=== PATIENT | male | born 1995 | race African-American/Black ===

== ENCOUNTER 2018-06-10 21:50 | Emergency (ER) | payer SELFPAY ==
[~2018-06-10] VITALS: Ht 182.9 cm; Wt 117.9 kg
[2018-06-10 21:55] VITALS: BP 134/61
[2018-06-10] MEDS ORDERED: SULF1TAB24 PO (22:24)
--- NOTE | 2018-06-10 22:26 | PHYS DOC ---
Past Medical History Past Medical History: No Pertinent History Past Surgical History: Other Additional Past Surgical Histo: BOTH FEET: CLUB FEET Alcohol Use: None Drug Use: None Adult General Chief Complaint Chief Complaint: ABSCESS HPI HPI Patient is a 23 year old male who presents with an abscess that is forming in his buttocks. The patient states that started approximately 3 days ago and is very painful. He denies fevers, nausea or vomiting. He has not taken any over- the-counter pain medication to help with this condition. Review of Systems Review of Systems Constitutional: Denies fever or chills [] Respiratory: Denies cough or shortness of breath [] Cardiovascular: No additional information not addressed in HPI [] GI: Denies abdominal pain, nausea, vomiting, bloody stools or diarrhea [] : Denies dysuria or hematuria [] Musculoskeletal: Denies back pain or joint pain [] Integument: See history of present illness Neurologic: Denies headache, focal weakness or sensory changes [] Endocrine: Denies polyuria or polydipsia [] All other systems were reviewed and found to be within normal limits, except as documented in this note. Physical Exam Physical Exam Constitutional: Well developed, well nourished, no acute distress, non-toxic appearance. [] Cardiovascular:Heart rate regular rhythm, no murmur [] Lungs & Thorax: Bilateral breath sounds clear to auscultation [] Abdomen: Bowel sounds normal, soft, no tenderness, no masses, no pulsatile masses. [] Skin: There is a 1.5 cm area of erythema with induration but no fluctuance to the upper gluteal fold Back: No tenderness, no CVA tenderness. [] Extremities: No tenderness, no cyanosis, no clubbing, ROM intact, no edema. [] Neurologic: Alert and oriented X 3, normal motor function, normal sensory function, no focal deficits noted. [] Psychologic: Affect normal, judgement normal, mood normal. [] Current Patient Data Vital Signs Vital Signs Date Time Temp Pulse Resp B/P (MAP) Pulse Ox O2 Delivery O2 Flow Rate FiO2 06/10/18 21:55 98.9 90 16 134/61 (85) 100 Room Air 98.9 EKG EKG [] Radiology/Procedures Radiology/Procedures [] Course & Med Decision Making Course & Med Decision Making Pertinent Labs and Imaging studies reviewed. (See chart for details) [] Dragon Disclaimer Dragon Disclaimer This electronic medical record was generated, in whole or in part, using a voice recognition dictation system. Departure Departure Impression: Primary Impression: Abscess Disposition: 01 HOME, SELF-CARE Condition: STABLE Referrals: NO PCP (PCP) Patient Instructions: Abscess Additional Instructions: Take the antibiotic as directed. Use hot compresses several times daily. Follow- up with your primary care provider if not improving in 4 days. If worsening return to the emergency department. Scripts Sulfamethoxazole/Trimethoprim (BACTRIM DS TABLET) 1 Each Tablet 1 TAB PO BID for infection, #20 TAB Prov: DINO ARELLANO APRN 06/10/18 DINO ARELLANO APRN Jun 10, 2018 22:26
== END 2018-06-10 22:35 | disposition home or self-care (01) ==
LOC: ER 21:50
DX: L02.31 Cutaneous abscess of buttock (principal)
CPT/HCPCS: 99283

== ENCOUNTER 2020-03-29 07:33 | Emergency (ER) | payer SELFPAY ==
[~2020-03-29] VITALS: Ht 172.7 cm; Wt 81.8 kg
[~2020-03-29 07:33] MED LIST: SULF1TAB24 PO
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
[2020-03-29 09:00] VITALS: BP 150/64
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
== END 2020-03-29 10:00 | disposition home or self-care (01) ==
LOC: ER 07:33
DX: S09.8XXA Other specified injuries of head, initial encounter (principal); Z87.891 Personal history of nicotine dependence; Z98.890 Other specified postprocedural states; W22.8XXA Striking against or struck by other objects, initial encounter; Y93.89 Activity, other specified; Y92.89 Other specified places as the place of occurrence of the external cause; Y99.8 Other external cause status
CPT/HCPCS: 70450; 99284